=== PATIENT | male | born 1960 | race Two or more races ===

== ENCOUNTER 2021-01-28 17:55 | Emergency (ER) | payer OTHER ==
[~2021-01-28] VITALS: Ht 170.2 cm; Wt 79.4 kg
[2021-01-28] MEDS ORDERED: ASPI81TA31 PO (18:15)
[2021-01-28] MEDS ORDERED: BP MED PO (18:15)
[2021-01-28] MEDS ORDERED: METF-442 PO (18:15)
--- NOTE | 2021-01-28 18:38 | NUR ---
Dr [email or web address], medical screening exam in progress
[2021-01-28] MEDS ORDERED: LIDOCAINE HCL 1% 20 ML VIAL IJ ONE (18:45)
[2021-01-28] MEDS ORDERED: CEFAZOLIN 1 G VIAL IM ONE (18:45)
[2021-01-28] MEDS ORDERED: TDAP DIPH,PERTUSS,TET VAC/PF 0.5 ML DISP.SYRIN IM ONE (18:45)
[2021-01-28] MEDS ORDERED: CEPH500C2 PO (18:54)
[2021-01-28] MEDS ORDERED: ACET-2154 PO (18:54)
[2021-01-28] MEDS ORDERED: DOXY-226 PO (18:54)
[2021-01-28] MEDS ORDERED: NAPR-1164 PO (18:54)
--- NOTE | 2021-01-28 19:05 | NUR ---
Hands off report given to AYO Olsen And AYO Cates, pending wound repair by [email or web address] time
[2021-01-28 19:34] VITALS: BP 137/90
[2021-01-28] MEDS ORDERED: BACITRACIN ZINC OINT 15 GM TUBE ONE (19:34)
--- NOTE | 2021-01-28 19:34 | NUR ---
Patient discharged to home in stable condition. Written and verbal after care instructions given. Patient verbalizes understanding of instructions. Stressed follow up or return to ER for worsening s/s. Patient out of ER with steady gait, no acute signs of distress, VSS, all belongings taken.
== END 2021-01-28 19:35 | disposition home or self-care (01) ==
LOC: ER 17:55
DX: S67.191A Crushing injury of left index finger, initial encounter (principal); S61.211A Laceration without foreign body of left index finger without damage to nail, initial encounter; V86.99XA Unspecified occupant of other special all-terrain or other off-road motor vehicle injured in nontraffic accident, initial encounter; Y92.39 Other specified sports and athletic area as the place of occurrence of the external cause; Y99.0 Civilian activity done for income or pay; Z79.82 Long term (current) use of aspirin; Z79.84 Long term (current) use of oral hypoglycemic drugs; Z79.899 Other long term (current) drug therapy; E11.9 Type 2 diabetes mellitus without complications
CPT/HCPCS: 12001; 73130; 90471; 90715; 96372; 99284; J0690; J3490; A4217; A4663

== ENCOUNTER 2021-01-30 12:04 | Emergency (ER) | payer OTHER ==
[~2021-01-30] VITALS: Ht 170.2 cm; Wt 79.4 kg
[~2021-01-30 12:04] MED LIST: ACET-2154 PO; ASPI81TA31 PO; BP MED PO; CEPH500C2 PO; DOXY-226 PO; METF-442 PO; NAPR-1164 PO
--- NOTE | 2021-01-30 12:23 | NUR ---
PT EVALUATED BY DR WILD. DISCHARGE INSTRUCTION GIVEN TO CONTINUE W/ PO ANTIBIOTICS, AND TO COME BACK IN 5 DAYS FOR SUTURE REMOVAL. WORK EXCUSE RENDERED.
[2021-01-30 12:24] VITALS: BP 149/90
== END 2021-01-30 12:25 | disposition home or self-care (01) ==
LOC: ER 12:04
DX: S61.211D Laceration without foreign body of left index finger without damage to nail, subsequent encounter (principal); X58.XXXD Exposure to other specified factors, subsequent encounter; E11.9 Type 2 diabetes mellitus without complications; Z79.82 Long term (current) use of aspirin; Z79.84 Long term (current) use of oral hypoglycemic drugs
CPT/HCPCS: A4663

== ENCOUNTER 2021-02-03 11:51 | Emergency (ER) | payer OTHER ==
[~2021-02-03] VITALS: Ht 172.7 cm; Wt 77.1 kg
--- NOTE | 2021-02-03 11:57 | NUR ---
[email or web address], medical screening exam in progress
--- NOTE | 2021-02-03 12:08 | NUR ---
Pending discharge papers@this time.
--- NOTE | 2021-02-03 12:35 | NUR ---
antique refinisher#[id number] (WIB) was used to give health teachings re: wound cleaning instructions & plan of care. Patient demonstrated properly on how to clean his wound and patient also verbalized understanding & compliance to the agreed wound care plan.
--- NOTE | 2021-02-03 12:57 | NUR ---
Patient discharged to home in stable condition with brisk steady gait. Written and verbal after care instructions given to patient in [place] language. Patient verbalized understanding of instructions. Stressed follow up with his primary doctor and workman's compensation provider or return to ER for worsening s/s.
== END 2021-02-03 12:57 | disposition home or self-care (01) ==
LOC: ER 11:51
DX: S61.211D Laceration without foreign body of left index finger without damage to nail, subsequent encounter (principal); L03.012 Cellulitis of left finger; X58.XXXD Exposure to other specified factors, subsequent encounter; E11.9 Type 2 diabetes mellitus without complications; Z79.82 Long term (current) use of aspirin; Z79.84 Long term (current) use of oral hypoglycemic drugs; Z91.19 Patient's noncompliance with other medical treatment and regimen
CPT/HCPCS: 73140; A4663

== ENCOUNTER 2021-02-05 18:27 | Emergency (ER) | payer OTHER ==
[~2021-02-05] VITALS: Ht 172.7 cm; Wt 77.1 kg
[2021-02-05] MEDS ORDERED: DOXY-326 PO (18:53)
--- NOTE | 2021-02-05 18:53 | NUR ---
Patient discharged to home in stable condition. Written and verbal after care instructions given. Patient verbalizes understanding of instructions. Stressed follow up or return to ER for worsening s/s.
== END 2021-02-05 18:54 | disposition home or self-care (01) ==
LOC: ER 18:29
DX: S61.211D Laceration without foreign body of left index finger without damage to nail, subsequent encounter (principal); W45.8XXD Other foreign body or object entering through skin, subsequent encounter; E11.9 Type 2 diabetes mellitus without complications; Z79.84 Long term (current) use of oral hypoglycemic drugs; Z79.82 Long term (current) use of aspirin
CPT/HCPCS: A4663

== ENCOUNTER 2021-02-08 10:29 | Emergency (ER) | payer OTHER ==
[~2021-02-08] VITALS: Ht 170.2 cm; Wt 79.4 kg
[~2021-02-08 10:29] MED LIST changes: +DOXY-326 PO
== END 2021-02-08 11:57 | disposition home or self-care (01) ==
LOC: ER 10:30
DX: S61.211D Laceration without foreign body of left index finger without damage to nail, subsequent encounter (principal); X58.XXXD Exposure to other specified factors, subsequent encounter; E11.9 Type 2 diabetes mellitus without complications; Z79.84 Long term (current) use of oral hypoglycemic drugs; Z79.82 Long term (current) use of aspirin
CPT/HCPCS: 73140; A4663

== ENCOUNTER 2021-02-11 10:55 | Emergency (ER) | payer OTHER ==
[~2021-02-11] VITALS: Ht 170.2 cm; Wt 79.4 kg
[2021-02-11] MEDS ORDERED: NEOMY/BACITRA/POLYMYXIN B OINT UD PACKET TP ONE ×2 (11:15→11:20)
--- NOTE | 2021-02-11 11:17 | NUR ---
Patient discharged to home in stable condition with steady gait. Written and verbal after care instructions given to patient in Khmer with ER registration staff Fátima as science interpreter. Patient verbalized understanding & compliance of instructions. Stressed follow up workmans' compensation provider clinic/primary doctor or return to ER for worsening s/s.
== END 2021-02-11 11:17 | disposition home or self-care (01) ==
LOC: ER 10:55
DX: S61.211D Laceration without foreign body of left index finger without damage to nail, subsequent encounter (principal); X58.XXXD Exposure to other specified factors, subsequent encounter; E11.9 Type 2 diabetes mellitus without complications; Z79.84 Long term (current) use of oral hypoglycemic drugs; Z79.82 Long term (current) use of aspirin
CPT/HCPCS: A4663